=== PATIENT | female | born 1980 | race Caucasian/White ===

== ENCOUNTER → 2017-01-11 | Outpatient (CLI) | payer BC ==
[~2017-01-11] MED LIST: CPR500T PO; EST.625T PO; HYDR-707 PO; VNL37.5T
--- NOTE | 2017-01-11 13:38 | Diagnostic Imaging Report ---
INDICATION: Neck enlargement TECHNIQUE: Grayscale sonographic images of the thyroid gland. CORRELATION STUDY: None FINDINGS: RIGHT LOBE: 4.5 x 1.4 x 1.4 cm. There is normal echotexture about the right lobe. LEFT LOBE: 4.3 x 1.4 x 1.4 cm. There is normal echotexture about the left lobe. Isthmus appears unremarkable. IMPRESSION: Thyroid gland is slightly elongated but otherwise unremarkable in appearance. Dictated by: Dictated on workstation # [id number]
== END ==
LOC: RAD 11:15
PROVIDERS: ATTEND Nurse Practitioner Family
DX: R22.1 Localized swelling, mass and lump, neck (principal)
CPT/HCPCS: 76536

== ENCOUNTER → 2017-05-13 | Outpatient (CLI) | payer BC ==
[~2017-05-13] VITALS: Ht 157.5 cm; Wt 63.5 kg
[~2017-05-13] MED LIST changes: +NS IV 1000 ML 1,000 ML IV SCH; +NS IV 1000 ML 1,000 ML ONE; +ONDANSETRON 4 MG/2 ML (SDV) Z0FRAN IVP NR; +ONDANSETRON 4 MG/2 ML (SDV) Z0FRAN ONE; +fentaNYL INJECTION 100 MCG/2 ML AMP IVP PRN; +fentaNYL INJECTION 100 MCG/2 ML AMP ONE
[2017-05-13 14:08] LABS: HEMOGLOBIN 13.2 G/DL (11.5-16.0); MEAN PLATELET VOLUME 11.2 FL (7.4-10.4); RED BLOOD COUNT 4.4 10^6/uL (4.35-5.85); RED CELL DISTRIBUTION WIDTH 12.6 % (10.0-14.5)
[2017-05-13 14:12] VITALS: BP 139/106
[2017-05-13 15:04] LABS: BILIRUBIN,URINE NEGATIVE (NEGATIVE); CLARITY,URINE CLEAR; COLOR,URINE YELLOW; GLUCOSE, URINE (UA) NEGATIVE (NEGATIVE); KETONES,URINE 3+ (NEGATIVE); LEUKOCYTE ESTERASE ,URINE NEGATIVE (NEGATIVE); NITRITE,URINE NEGATIVE (NEGATIVE); PH,URINE 6 (5-9); PROTEIN,URINE NEGATIVE (NEGATIVE); UROBILINOGEN,URINE NORMAL (NORMAL)
[2017-05-13 15:10] LABS: BACTERIA,URINE FEW /HPF; SQUAMOUS EPITHELIAL CELL,UR 0-2 /HPF
[2017-05-13 15:12] VITALS: BP 139/106
== END ==
LOC: SDC 13:40
PROVIDERS: ATTEND Nurse Practitioner Family
DX: E86.0 Dehydration (principal); R11.0 Nausea; R53.81 Other malaise
CPT/HCPCS: 36415; 81000; 85027; 96360; 96375

== ENCOUNTER → 2017-06-03 | Outpatient (CLI) | payer BC ==
[~2017-06-03] MED LIST changes: -NS IV 1000 ML 1,000 ML IV SCH; -NS IV 1000 ML 1,000 ML ONE; -ONDANSETRON 4 MG/2 ML (SDV) Z0FRAN IVP NR; -ONDANSETRON 4 MG/2 ML (SDV) Z0FRAN ONE; -fentaNYL INJECTION 100 MCG/2 ML AMP IVP PRN; -fentaNYL INJECTION 100 MCG/2 ML AMP ONE
[2017-06-03 12:10] LABS: ABSOLUTE RETIC # 35 10e9/L (24-90); BASOPHILS % (AUTO) 0 % (0-10); EOSINOPHILS % (AUTO) 1 % (0-10); HEMATOCRIT 35 % (35-52); HEMOGLOBIN 11.9 G/DL (11.5-16.0); LYMPHOCYTES # (AUTO) 1.9 X 10^3 (1.0-4.0); LYMPHOCYTES % (AUTO) 41 % (12-44); MEAN CORPUSCULAR HEMOGLOBIN 30 PG (25-34); MEAN CORPUSCULAR HGB CONC 34 G/DL (32-36); MEAN CORPUSCULAR VOLUME 87 FL (80-99); MEAN PLATELET VOLUME 11.5 FL (7.4-10.4); MONOCYTES # (AUTO) 0.4 X 10^3 (0.0-1.0); MONOCYTES % (AUTO) 8 % (0-12); NEUTROPHILS # (AUTO) 2.4 X 10^3 (1.8-7.8); NEUTROPHILS % (AUTO) 51 % (42-75); PLATELET COUNT 197 10^3/uL (130-400); RED BLOOD COUNT 3.97 10^6/uL (4.35-5.85); RED CELL DISTRIBUTION WIDTH 12.8 % (10.0-14.5); RETICULOCYTE % 0.88 % (0.50-2.40); WHITE BLOOD COUNT 4.7 10^3/uL (4.3-11.0)
[2017-06-03 13:14] LABS: EOSINOPHILS % (MANUAL) 1 %; LYMPHOCYTES % (MANUAL) 41 %; MONOCYTES % (MANUAL) 12 %; NEUTROPHILS % (MANUAL) 46 %
[2017-06-03 13:15] LABS: RBC MORPH NORMAL
== END ==
LOC: LAB 11:53
PROVIDERS: ATTEND Family Medicine
DX: D72.819 Decreased white blood cell count, unspecified (principal)
CPT/HCPCS: 36415; 85007; 85027; 85045

== ENCOUNTER 2019-07-11 10:13 | Emergency (ER) | payer BC ==
[~2019-07-11] VITALS: Ht 157 cm; Wt 58.9 kg
[~2019-07-11 10:13] MED LIST changes: -ALPRAZolam 0.25 MG (XANAX) TAB PO ONE; -NS IV 1000 ML 1,000 ML IV ONE
[2019-07-11] MEDS ORDERED: ALPRAZolam 0.25 MG (XANAX) TAB PO ONE (10:45)
--- NOTE | 2019-07-11 10:50 | ED Chest Pain ---
General Stated Complaint: CHEST PAIN Source: patient Exam Limitations: no limitations History of Present Illness Date Seen by Provider: Jul 11, 2019 Time Seen by Provider: 10:47 Initial Comments To ER from the outpatient department with reports of chest pain, accidentally took 's medication. She had inadvertently been taking Norvasc 10 mg daily of her husbands taking it was 1 of her own for the past 3 days. Last night her blood pressure was low. Today she developed some chest pain and headache. She also feels quite anxious. The outpatient department doesn't evaluate patients with chest pain so she was referred here. Timing/Duration: 4-6 hours Severity/Quality: moderate Location: central Radiation: no radiation Activities at Onset: none Prior CP/Workup: no prior chest pain ASA po TRUST CLERK: No NTG SL TRUST CLERK: No Allergies and Home Medications Allergies Coded Allergies: No Known Drug Allergies (Verified , 06/22/12) Home Medications Ciprofloxacin 500 Mg Tablet, 1 TAB PO BID Prescribed by: ANA MIDDLETON on 08/28/11 1005 Estrogens,Conjugated 0.625 Mg Tablet, 1.25 MG PO DAILY, (Reported) Hydrocodone Bit/Acetaminophen 1 Each Tablet, 1-2 EACH PO Q 4 - 6 HR PRN Prescribed by: ANA MIDDLETON on 08/28/11 1005 Patient Home Medication List Home Medication List Reviewed: Yes Review of Systems Review of Systems Constitutional: see HPI EENTM: No Symptoms Reported Respiratory: No Symptoms Reported Cardiovascular: See HPI, Chest Pain Gastrointestinal: No Symptoms Reported Genitourinary: No Symptoms Reported Musculoskeletal: no symptoms reported Skin: no symptoms reported Psychiatric/Neurological: No Symptoms Reported Endocrine: No Symptoms Reported Hematologic/Lymphatic: No Symptoms Reported Physical Exam Vital Signs Vital Signs - First Documented 07/11/19 10:13 Pulse 108 Resp 36 B/P (MAP) 148/99 (115) Pulse Ox 100 O2 Delivery Room Air Capillary Refill : Height, Weight, BMI Height: 5'2.00" Weight: 140lbs. 0.0oz. [id number]; 25.6 BMI Method: General Appearance: No Apparent Distress, WD/WN, Anxious HEENT: PERRL/EOMI, TMs Normal Neck: Full Range of Motion, Normal Inspection Respiratory: No Accessory Muscle Use, No Respiratory Distress Cardiovascular: Regular Rate, Rhythm, Normal Peripheral Pulses Gastrointestinal: Normal Bowel Sounds, Non Tender, Soft Extremity: Normal Capillary Refill, Normal Inspection Neurologic/Psychiatric: Alert, Oriented x3 Skin: Normal Color, Warm/Dry Progress/Results/Core Measures Results/Orders Lab Results Laboratory Tests Test 07/11/19 11:05 Range/Units White Blood Count 5.5 4.3-11.0 10^3/uL Red Blood Count 4.67 4.35-5.85 10^6/uL Hemoglobin 14.0 11.5-16.0 G/DL Hematocrit 42 35-52 % Mean Corpuscular Volume 90 80-99 FL Mean Corpuscular Hemoglobin 30 25-34 PG Mean Corpuscular Hemoglobin Concent 33 32-36 G/DL Red Cell Distribution Width 13.4 10.0-14.5 % Platelet Count 228 130-400 10^3/uL Mean Platelet Volume 10.7 H 7.4-10.4 FL Neutrophils (%) (Auto) 68 42-75 % Lymphocytes (%) (Auto) 23 12-44 % Monocytes (%) (Auto) 9 0-12 % Eosinophils (%) (Auto) 0 0-10 % Basophils (%) (Auto) 0 0-10 % Neutrophils # (Auto) 3.8 1.8-7.8 X 10^3 Lymphocytes # (Auto) 1.3 1.0-4.0 X 10^3 Monocytes # (Auto) 0.5 0.0-1.0 X 10^3 Eosinophils # (Auto) 0.0 0.0-0.3 10^3/uL Basophils # (Auto) 0.0 0.0-0.1 10^3/uL Prothrombin Time 12.4 12.2-14.7 SEC INR Comment 0.9 0.8-1.4 Activated Partial Thromboplast Time 26 24-35 SEC D-Dimer 0.70 H 0.00-0.49 UG/ML Sodium Level 138 135-145 MMOL/L Potassium Level 3.9 3.6-5.0 MMOL/L Chloride Level 102 98-107 MMOL/L Carbon Dioxide Level 25 21-32 MMOL/L Anion Gap 11 5-14 MMOL/L Blood Urea Nitrogen 9 7-18 MG/DL Creatinine 0.76 0.60-1.30 MG/DL Estimat Glomerular Filtration Rate > 60 BUN/Creatinine Ratio 12 Glucose Level 104 70-105 MG/DL Calcium Level 9.8 8.5-10.1 MG/DL Corrected Calcium 8.5-10.1 MG/DL Magnesium Level 1.9 1.6-2.4 MG/DL Total Bilirubin 0.4 0.1-1.0 MG/DL Aspartate Amino Transf (AST/SGOT) 30 5-34 U/L Alanine Aminotransferase (ALT/SGPT) 25 0-55 U/L Alkaline Phosphatase 70 40-136 U/L Myoglobin 22.1 10.0-92.0 NG/ML Troponin I < 0.028 <0.028 NG/ML B-Type Natriuretic Peptide 11.7 <100.0 PG/ML Total Protein 8.9 H 6.4-8.2 GM/DL Albumin 5.1 H 3.2-4.5 GM/DL Lipase 19 8-78 U/L Serum Test, Qualitative NEGATIVE NEGATIVE My Orders Orders - RICARDO BORGES APRN Cbc With Automated Diff (07/11/19 10:41) Magnesium (07/11/19 10:41) Chest 1 View, Ap/Pa Only (07/11/19 10:41) Ekg Tracing (07/11/19 10:41) Comprehensive Metabolic Panel (07/11/19 10:41) Myoglobin Serum (07/11/19 10:41) Protime With Inr (07/11/19 10:41) Partial Thromboplastin Time (07/11/19 10:41) O2 (07/11/19 10:41) Monitor-Rhythm Ecg Trace Only (07/11/19 10:41) Lipid Panel (07/12/19 06:00) Ed Iv/Invasive Line Start (07/11/19 10:41) Lipase (07/11/19 10:41) BNP (07/11/19 10:41) Troponin I (07/11/19 10:41) Alprazolam Tablet (Xanax Tablet) (07/11/19 10:45) Hcg,Qualitative Serum (07/11/19 11:00) Fibrin Degradation Products (07/11/19 11:05) Ct Angio Chest W (07/11/19 11:40) Iohexol Injection (Omnipaque 350 Mg/Ml 1 (07/11/19 12:00) Received Contrast (Hold Metformin- Contr (07/11/19 12:00) Ns (Ivpb) (Sodium Chloride 0.9% Ivpb Bag (07/11/19 12:00) Medications Given in ED Current Medications Medications Dose Ordered Sig/Monika Route Start Time Stop Time Status Last Admin Dose Admin Alprazolam 0.25 mg ONCE ONCE PO 07/11/19 10:45 07/11/19 10:46 DC 07/11/19 10:59 0.25 MG Iohexol 75 ml ONCE ONCE IV 07/11/19 12:00 07/11/19 12:10 DC 07/11/19 12:21 75 ML Sodium Chloride 100 ml ONCE ONCE IV 07/11/19 12:00 07/11/19 12:10 DC 07/11/19 12:21 80 ML Vital Signs/I&O 07/11/19 10:13 Pulse 108 Resp 36 B/P (MAP) 148/99 (115) Pulse Ox 100 O2 Delivery Room Air Departure Communication (Admissions) 1235-feeling quite a bit better at this time we will discharge to home. Impression Primary Impression: Chest pain Qualified Codes: R07.9 - Chest pain, unspecified Additional Impression: Ingestion, drug, inadvertent or accidental Qualified Codes: T50.901A - Poisoning by unspecified drugs, medicaments and biological substances, accidental (unintentional), initial encounter Disposition: 01 HOME, SELF-CARE Condition: Improved Departure-Patient Inst. Decision time for Depature: 12:36 Referrals: JOSY WEBB MD (PCP/Family) Primary Care Physician Patient Instructions: NO INSTRUCTIONS GIVEN Add. Discharge Instructions: 1. Return to ER for any concerns 2. Follow-up with your doctor next week 3. RICARDO BORGES APRN Jul 11, 2019 10:49
--- NOTE | 2019-07-11 11:08 | Diagnostic Imaging Report ---
INDICATION: Chest pain. Frontal chest obtained at 10:58 a.m. and compared to 08/05/2007. Heart and mediastinal silhouette are normal in appearance. The lungs are clear. There is no pneumothorax or pleural fluid. IMPRESSION: Negative chest. Dictated by: Dictated on workstation # [id number]
[2019-07-11 11:16] LABS: BASOPHILS % (AUTO) 0 % (0-10); EOSINOPHILS % (AUTO) 0 % (0-10); HEMATOCRIT 42 % (35-52); LYMPHOCYTES # (AUTO) 1.3 X 10^3 (1.0-4.0); LYMPHOCYTES % (AUTO) 23 % (12-44); MEAN CORPUSCULAR HEMOGLOBIN 30 PG (25-34); MEAN CORPUSCULAR HGB CONC 33 G/DL (32-36); MEAN CORPUSCULAR VOLUME 90 FL (80-99); MEAN PLATELET VOLUME 10.7 FL (7.4-10.4); MONOCYTES # (AUTO) 0.5 X 10^3 (0.0-1.0); MONOCYTES % (AUTO) 9 % (0-12); NEUTROPHILS # (AUTO) 3.8 X 10^3 (1.8-7.8); NEUTROPHILS % (AUTO) 68 % (42-75); PLATELET COUNT 228 10^3/uL (130-400); RED CELL DISTRIBUTION WIDTH 13.4 % (10.0-14.5); WHITE BLOOD COUNT 5.5 10^3/uL (4.3-11.0)
[2019-07-11 11:35] LABS: FIBRIN DEGRADATION PRODUCTS 0.7 UG/ML (0.00-0.49); INR 0.9 (0.8-1.4); PROTHROMBIN TIME PATIENT 12.4 SEC (12.2-14.7)
[2019-07-11 11:43] LABS: ALANINE AMINOTRANSFERASE 25 U/L (0-55); ALBUMIN 5.1 GM/DL (3.2-4.5); ALKALINE PHOSPHATASE 70 U/L (40-136); BILIRUBIN,TOTAL 0.4 MG/DL (0.1-1.0); BUN/CREATININE RATIO 12; CALCIUM 9.8 MG/DL (8.5-10.1); CARBON DIOXIDE 25 MMOL/L (21-32); CHLORIDE 102 MMOL/L (98-107); CREATININE SERUM 0.76 MG/DL (0.60-1.30); GFR ESTIMATED > 60; GLUCOSE 104 MG/DL (70-105); LIPASE 19 U/L (8-78); MAGNESIUM 1.9 MG/DL (1.6-2.4); POTASSIUM 3.9 MMOL/L (3.6-5.0); SODIUM 138 MMOL/L (135-145); TOTAL PROTEIN 8.9 GM/DL (6.4-8.2)
[2019-07-11] MEDS ORDERED: IOHEXOL 350 MG/ML 100 ML (OMNIPAQUE 350) VIAL IV ONE (12:00)
[2019-07-11] MEDS ORDERED: NS 100 ML (IVPB) BAG IV ONE (12:00)
[2019-07-11] MEDS ORDERED: HOLD METFORMIN - RECEIVED CONTRAST 20 ML VIAL IV SCH (12:00)
--- NOTE | 2019-07-11 12:31 | Diagnostic Imaging Report ---
PROCEDURE: CT angiography of the chest with contrast. TECHNIQUE: Multiple contiguous axial images were obtained through the chest after uneventful bolus administration of intravenous contrast. 3D reconstructed CTA MIP acquisitions were also performed. Auto Exposure Controls were utilized during the CT exam to meet ALARA standards for radiation dose reduction. INDICATION: Chest pain and pressure. COMPARISON: Chest radiograph performed earlier the same date. FINDINGS: This helical CT pulmonary angiogram is diagnostic to the subsegmental level branches of the pulmonary artery and demonstrates no pulmonary emboli. The heart and great vessels are unremarkable. There is no pericardial effusion. No evidence of aneurysm or dissection in the thoracic aorta. No mediastinal hematoma. There is no axillary, mediastinal, or hilar adenopathy. The lungs demonstrate no consolidation, nodules, or other parenchymal abnormality. No pleural effusion is seen. Osseous structures appear normal. Limited views of the upper abdomen are unremarkable. IMPRESSION: 1. No acute pulmonary embolus. No evidence of aneurysm or dissection in the thoracic aorta. No acute abnormalities in the chest. Dictated by: Dictated on workstation # [id number]
[2019-07-11 13:00] VITALS: BP 125/89
== END 2019-07-11 13:00 | disposition home or self-care (01) ==
LOC: EDUNIT# 10:13 → ER 10:14
DX: T46.1X1A Poisoning by calcium-channel blockers, accidental (unintentional), initial encounter (principal); R07.9 Chest pain, unspecified
CPT/HCPCS: 36415; 71045; 71275; 80053; 83690; 83735; 83874; 83880; 84484; 84703; 85025; 85379; 85610; 85730; 93005; 93041

== ENCOUNTER → 2019-07-11 | Outpatient (CLI) | payer BC ==
[~2019-07-11] MED LIST changes: +ALPRAZolam 0.25 MG (XANAX) TAB PO ONE; +NS IV 1000 ML 1,000 ML IV ONE
== END ==
LOC: SDC 09:57
PROVIDERS: ATTEND Nurse Practitioner Family
DX: R07.9 Chest pain, unspecified (principal); R00.0 Tachycardia, unspecified

== ENCOUNTER → 2022-02-24 | Outpatient (CLI) | payer BC, OTHER ==
--- NOTE | 2022-02-25 15:35 | Diagnostic Imaging Report ---
I123 THYROID UPTAKE SCAN Technique: Multiplanar scintigraphic imaging of the thyroid was performed after the oral administration of 190 uCi of sodium I-123. Thyroid uptake imaging calculations were taken at 6 hours and 24 hours. Indication: Hyperthyroidism Comparison: None available. Findings: There is homogeneous radiotracer uptake throughout the thyroid. No abnormal photopenia or focal radiotracer avid nodules. Thyroid uptake values are as follows: 6 hour uptake:26% (normal range 8-16%) 24-hour uptake: 43% (normal range 10-30%) Impression: Hyperthyroidism without hyperfunctioning adenoma. Dictated by: Dictated on workstation # [id number]
== END ==
LOC: CARD 12:00
PROVIDERS: ATTEND Nurse Practitioner Family
DX: E05.90 Thyrotoxicosis, unspecified without thyrotoxic crisis or storm (principal)
CPT/HCPCS: 78014; A9516

== ENCOUNTER → 2022-12-18 | Outpatient (CLI) | payer OTHER ==
--- NOTE | 2022-12-21 11:33 | Diagnostic Imaging Report ---
INDICATION: Routine screening No prior mammograms are available for comparison. This a baseline study. 2-D and 3-D bilateral screening mammography was performed with CAD. Bilateral subpectoral breast implants are noted. Implant contours appear smooth, without evidence of extracapsular rupture. Both breasts are heterogeneously dense, limiting the sensitivity of mammography. No mass or malignant-appearing microcalcifications are seen. Axillae are unremarkable. IMPRESSION: No mammographic features suspicious for malignancy are identified. ACR BI-RADS Category 2: Benign findings. Result letter will be mailed to the patient. Note: At least 10% of breast cancer is not imaged by mammography. BI-RADS Category 2 Dictated by: Dictated on workstation # [id number]
== END ==
LOC: RAD 14:30
PROVIDERS: ATTEND Nurse Practitioner Family
DX: Z12.31 Encounter for screening mammogram for malignant neoplasm of breast (principal)
CPT/HCPCS: 77063; 77067